=== PATIENT | male | born 1945 | race Caucasian/White ===

== ENCOUNTER → 2024-01-31 | Outpatient (CLI) | payer MEDICARE ==
[2024-01-31 09:04] LABS: African American GFR (CKD) >90 (>60 ml/min/1.73 sqM); Blood Urea Nitrogen 13 mg/dL (9-20); Non-African American GFR(CKD) 81 (>60 ml/min/1.73 sqM)
--- NOTE | 2024-01-31 16:49 | CT ---
EXAMINATION TYPE: CT urogram wo/w con CT DLP: 2505 mGycm, Automated exposure control for dose reduction was used. DATE OF EXAM: 01/31/2024 10:46 AM COMPARISON: CT urogram 12/07/2021 CLINICAL INDICATION:Male, 78 years old with history of R31.1 MICROSCOPIC HEMATURIA; PHH, Microscopic hematuria, possible bladder mass. Contrast in bladder at 4 min, No 3D images due to ISP not working f or Room 2. TECHNIQUE: Urogram of the abdomen and pelvis was performed before and after the administration of 100 cc of IV c ontrast Isovue 300 contrast. Delayed imaging was performed. Coronal and sagittal reformats were perfo rmed. One or more CT dose reduction strategies were utilized during this examination. FINDINGS: GENITOURINARY: RIGHT KIDNEY AND URETER: No calculi. No hydronephrosis or hydroureter. Similar perinephric fat strand ing. No renal mass or other lesions. No urothelial lesions: no filling defect, dilation, stricture or wall thickening. LEFT KIDNEY AND URETER: No calculi. No hydronephrosis or hydroureter. Similar perinephric fat strandi ng. No renal mass or other lesions. No urothelial lesions: no filling defect, dilation, stricture or wall thickening. URINARY BLADDER: Mildly distended. No discrete definitive bladder wall thickening and today's exam. N ormal, no calculi, mass or other lesions. REPRODUCTIVE: Enlarged prostate gland measuring 5.4 cm in transverse dimension. This indents upon the urinary bladder base. ABDOMEN LIVER: Unremarkable. GALLBLADDER AND BILE DUCTS: Unremarkable PANCREAS: Unremarkable. SPLEEN: Unremarkable. ADRENAL GLANDS: Unremarkable. STOMACH AND BOWEL: Few scattered colonic diverticula without evidence for acute diverticulitis. No fo hannah bowel wall thickening or surrounding inflammatory changes.. No evidence of bowel obstruction. PERITONEUM: No evidence of pneumoperitoneum or free fluid. Left paracolic gutter stable 1 cm nodule which may represent a lymph node versus splenule. VASCULATURE: Moderate atherosclerotic calcifications are present throughout the abdominal aorta and i ts branches. No abdominal aortic aneurysm. At least mild stenosis at origin of the right renal artery . MUSCULOSKELETAL: No acute osseous abnormalities. Advanced osteoarthritic change of both hips with dev elopment of left lateral hip 3.7 mm fluid collection likely representing bursitis. Bilateral SI joint degenerative changes. Moderate multilevel degenerative changes of the visualized spine with anterior hypertrophic changes. SOFT TISSUE/ABDOMINAL WALL: Fat filled right inguinal hernia redemonstrated. LOWER CHEST: Visualized lung bases are clear. Small pericardial effusion. RCA coronary artery calcifi cations. IMPRESSION: 1. No evidence of urolithiasis or renal/urothelial neoplasm. Previously seen bladder wall thickening is not well-visualized on today's exam. Consider direct visualization. 2. Severe end-stage osteoarthrosis of the hips with development of left perihepatic 3.7 cm fluid kayode ection most consistent with bursitis. 3. Colonic diverticulosis without evidence for acute diverticulitis. 4. Prostatomegaly which indents upon the urinary bladder base. 5. Right fat filled inguinal hernia redemonstrated. [facility], , 01/31/2024 4:46 PM
== END | disposition home or self-care (01) ==
LOC: RADCTMAIN 08:07
PROVIDERS: ATTEND Urology
DX: R31.1 Benign essential microscopic hematuria
CPT/HCPCS: 36415; 74178; 74400; 82565; 84520